=== PATIENT | female | born 1995 | race African-American/Black ===

== ENCOUNTER 2020-11-24 20:57 | Emergency (ER) | payer BC, OTHER ==
[~2020-11-24] VITALS: Ht 172.7 cm; Wt 90.7 kg
[2020-11-24 21:12] VITALS: BP 138/87
[2020-11-24] MEDS ORDERED: PENICILLIN VK500 M1 PO (21:31)
[2020-11-24] MEDS ORDERED: HYDROCODON-ACE1 EAC7 PO (21:31)
== END 2020-11-24 21:44 | disposition home or self-care (01) ==
LOC: ER 20:57
DX: K02.9 Dental caries, unspecified (principal)